=== PATIENT | female | born 1965 | race Native Hawaiian/Other Pacific Islander ===

== ENCOUNTER 2021-02-01 15:55 | Emergency (ER) | payer BC ==
[~2021-02-01] VITALS: Ht 157.5 cm; Wt 74.8 kg
[2021-02-01 16:05] VITALS: TEMP 97.8
[2021-02-01 18:52] VITALS: BP 166/94
== END 2021-02-01 18:52 | disposition home or self-care (01) ==
LOC: ED 15:55
DX: S62.291A Other fracture of first metacarpal bone, right hand, initial encounter for closed fracture (principal); W18.39XA Other fall on same level, initial encounter; Y92.89 Other specified places as the place of occurrence of the external cause
CPT/HCPCS: 99282